=== PATIENT | female | born 1960 | race Two or more races ===

== ENCOUNTER 2019-08-09 17:42 | Emergency (ER) | payer OTHER ==
[~2019-08-09] VITALS: Ht 149.9 cm; Wt 59.0 kg
[2019-08-09] MEDS ORDERED: BACLOFEN 10 MG TAB PO ONE (21:00)
[2019-08-09] MEDS ORDERED: HYDROcodone-ACET 10/325MG TAB PO ONE (21:00)
[2019-08-09 21:26] VITALS: BP 110/74
== END 2019-08-09 21:47 | disposition home or self-care (01) ==
LOC: ER 17:42
DX: J32.0 Chronic maxillary sinusitis (principal); M62.838 Other muscle spasm; V49.49XA Driver injured in collision with other motor vehicles in traffic accident, initial encounter; Y93.89 Activity, other specified; Y99.8 Other external cause status; Y92.410 Unspecified street and highway as the place of occurrence of the external cause
CPT/HCPCS: 70450; 70486